=== PATIENT | female | born 1970 | race Caucasian/White ===

== ENCOUNTER 2018-03-14 16:39 | Inpatient (IN) ==
--- NOTE | 2018-03-14 18:29 | ED ---
HPI General Chief complaint: Overdose Stated complaint: psych eval /vol Time Seen by Provider: 03/14/18 17:23 History of Present Illness HPI narrative: Patient 48-year-old female history of bipolar disease presents emergency department at the insistence of her psychiatrist for evaluation of depression, the patient states she was evaluated and is been going through some things and has been thinking about hurting herself, she states about 11:00 sedation took 25 x 25 mg Benadryl tablets. Denies any other ingestion, denies any chest pain shortness of breath abdominal pain nausea vomiting diarrhea constipation. Symptoms moderate, for the past few weeks, gradually worsening, associated signs symptoms in context as above. Related Data Home Medications Medication Instructions Recorded Confirmed atorvastatin 20 mg PO HS 12/27/17 03/14/18 cholecalciferol (vitamin D3) 1,000 unit PO DAILY 12/27/17 03/14/18 [Vitamin D3] escitalopram oxalate 20 mg PO DAILY 12/27/17 03/14/18 famotidine 40 mg PO DAILY 12/27/17 03/14/18 ferrous sulfate 325 mg PO DAILY 12/27/17 03/14/18 gabapentin See Label Instructions .ROUTE 12/27/17 03/14/18 .COMPLEX meclizine 25 mg PO TID 12/27/17 03/14/18 omeprazole 40 mg PO DAILY 12/27/17 03/14/18 quetiapine 50 mg PO HS 12/27/17 03/14/18 ropinirole 0.25 mg PO HS 12/27/17 03/14/18 zolpidem 5 mg PO HS 12/27/17 03/14/18 Allergies Allergy/AdvReac Type Severity Reaction Status Date / Time No Known Allergies Allergy Verified 03/14/18 18:58 Review of Systems ROS: all other systems reviewed are negative [facility] Medical History Medical History Bipolar 1 disorder, depressed (Acute) Cholecystectomy planned (Acute) Depression (Acute) High cholesterol (Acute) History of hysterectomy (Acute) PTSD (post-traumatic stress disorder) (Acute) Social History Social History Substance History: No History of Abuse Second Hand Smoke Exposure: No Smoking Status: Never smoker How Often Do You Have a Drink Containing Alcohol: Never Recent Travel in [facility] within the Last 8 Weeks: No Recent Out of Country Travel within the Last 8 Weeks: No Immunization History Tetanus Immunization: <5 Years Hx Influenza Vaccine This Season: Yes Exam Narrative Exam Narrative: GENERAL: Well-developed well-nourished, overweight female in no obvious distress peer SKIN: Focused skin assessment warm/dry. HEAD: Atraumatic. Normocephalic. EYES: Pupils equal and round. No scleral icterus. No injection or drainage. ENT: No nasal bleeding or discharge. Mucous membranes pink and moist. NECK: Trachea midline. No JVD. CARDIOVASCULAR: Regular rate and rhythm. No murmur appreciated. RESPIRATORY: No accessory muscle use. Clear to auscultation. Breath sounds equal bilaterally. GASTROINTESTINAL: Abdomen soft, non-tender, nondistended. Hepatic and splenic margins not palpable. MUSCULOSKELETAL: No obvious deformities. No clubbing. No cyanosis. No edema. NEUROLOGICAL: Awake and alert. No obvious cranial nerve deficits. Motor grossly within normal limits. Normal speech. PSYCHIATRIC: Depressed mood and affect. Insight and judgment fair. Endorses suicidal ideation with planning and attempt today. Course Initial Documented Vital Signs Temperature 98.4 F 03/14/18 16:55 Pulse Rate 101 H 03/14/18 16:55 Respiratory Rate 24 03/14/18 16:55 Blood Pressure 132/73 03/14/18 16:55 Pulse Oximetry 95 03/14/18 16:55 Last Documented Vital Signs Temperature 97.8 F 03/16/18 18:00 Pulse Rate 81 03/16/18 18:00 Respiratory Rate 17 03/16/18 18:00 Blood Pressure 114/52 L 03/16/18 18:00 Pulse Oximetry 98 03/16/18 18:00 Medical Decision Making [facility] Narrative Medical decision making narrative: Patient room in the emergency department, several notes were handed to me from Gary Turner nurse from [facility]. States that her outpatient psychiatrist recommended that she be considered highly for admission I do not disagree. Patient wants to be admitted under voluntary status, I discussed my recommendation the patient should be admitted with Mr. Turner. He is going to call the psychiatrist on an attempt to find orders for admission. Patient medically cleared for psychiatric evaluation, was discussed with Mr. Turner upon medical clearance. Medical Screen Exam Complete: Yes Emergency Medical Condition: Yes Lab Data Result diagrams: 03/16/18 11:35 03/16/18 11:35 POC Results POC Urine Results Negative Lab Results 10/02/18 10/02/18 10/02/18 Range/Units 18:25 18:35 18:35 WBC 10.3 (4.0-11.0) th/mm3 RBC 4.32 (4.00-5.30) mil/mm3 Hgb 12.0 (11.6-15.3) gm/dL Hct 38.6 (35.0-46.0) % MCV 89.4 (80.0-100.0) fL MCH 27.8 (27.0-34.0) pg MCHC 31.2 L (32.0-36.0) % RDW 15.7 (11.6-17.2) % Plt Count 252 (150-450) th/mm3 MPV 7.8 (7.0-11.0) fL Neut % (Auto) 72.2 H (16.0-70.0) % Lymph % (Auto) 21.9 (9.0-44.0) % [place] % (Auto) 5.0 (0.0-8.0) % Eos % (Auto) 0.6 (0.0-4.0) % Baso % (Auto) 0.3 (0.0-2.0) % Neut # (Auto) 7.4 (1.8-7.7) th/mm3 Lymph # (Auto) 2.3 (1.0-4.8) th/mm3 [place] # (Auto) 0.5 (0.0-0.9) th/mm3 Eos # (Auto) 0.1 (0.0-0.4) th/mm3 Baso # (Auto) 0.0 (0.0-0.2) th/mm3 WBC Differential . Differential Comment Auto diff final Sodium 137 (136-145) meq/L Potassium 4.1 (3.5-5.1) meq/L Chloride 106 (98-107) meq/L Carbon Dioxide 20.5 L (21.0-32.0) meq/L Anion Gap 11 (5-15) meq/L BUN 13 (7-18) mg/dL Creatinine 0.65 (0.50-1.00) mg/dL Estimated GFR Greater than 89 (>89) mL/min POC Glucose (68-110) mg/dl Random Glucose 68 L (74-106) mg/dL Hemoglobin A1c (4.3-6.0) % Calcium 8.6 (8.5-10.1) mg/dL Iron (50-170) mcg/dL Total Bilirubin 0.2 (0.2-1.0) mg/dL AST 18 (15-37) U/L ALT 24 (10-53) U/L Alkaline Phosphatase 93 (45-117) U/L Total Protein 7.8 (6.4-8.2) g/dL Albumin 3.5 (3.4-5.0) g/dL Triglycerides (42-150) mg/dL Cholesterol (120-200) mg/dL LDL Cholesterol, Calc (0-99) mg/dL HDL Cholesterol (40.0-60.0) mg/dL Cholesterol/HDL Ratio Ratio TSH 2.160 (0.358-3.740) uIU/mL Urine Opiates Screen Neg (Neg) Acetaminophen Less than 2.0 L (10.0-30.0) mcg/mL Ur Barbiturates Screen Neg (Neg) Ur Amphetamines Screen Neg (Neg) U Benzodiazepines Scrn Neg (Neg) [place] (0.5-1.5) meq/L Urine Cocaine Screen Neg (Neg) U Cannabinoids Screen Neg (Neg) Serum Alcohol Less than 3 (0-5) mg/dL 03/14/18 03/14/18 03/14/18 Range/Units 21:12 21:12 22:40 WBC (4.0-11.0) th/mm3 RBC (4.00-5.30) mil/mm3 Hgb (11.6-15.3) gm/dL Hct (35.0-46.0) % MCV (80.0-100.0) fL MCH (27.0-34.0) pg MCHC (32.0-36.0) % RDW (11.6-17.2) % Plt Count (150-450) th/mm3 MPV (7.0-11.0) fL Neut % (Auto) (16.0-70.0) % Lymph % (Auto) (9.0-44.0) % [place] % (Auto) (0.0-8.0) % Eos % (Auto) (0.0-4.0) % Baso % (Auto) (0.0-2.0) % Neut # (Auto) (1.8-7.7) th/mm3 Lymph # (Auto) (1.0-4.8) th/mm3 [place] # (Auto) (0.0-0.9) th/mm3 Eos # (Auto) (0.0-0.4) th/mm3 Baso # (Auto) (0.0-0.2) th/mm3 WBC Differential Differential Comment Sodium (136-145) meq/L Potassium (3.5-5.1) meq/L Chloride (98-107) meq/L Carbon Dioxide (21.0-32.0) meq/L Anion Gap (5-15) meq/L BUN (7-18) mg/dL Creatinine (0.50-1.00) mg/dL Estimated GFR (>89) mL/min POC Glucose 95 (68-110) mg/dl Random Glucose (74-106) mg/dL Hemoglobin A1c (4.3-6.0) % Calcium (8.5-10.1) mg/dL Iron 51 (50-170) mcg/dL Total Bilirubin (0.2-1.0) mg/dL AST (15-37) U/L ALT (10-53) U/L Alkaline Phosphatase (45-117) U/L Total Protein (6.4-8.2) g/dL Albumin (3.4-5.0) g/dL Triglycerides (42-150) mg/dL Cholesterol (120-200) mg/dL LDL Cholesterol, Calc (0-99) mg/dL HDL Cholesterol (40.0-60.0) mg/dL Cholesterol/HDL Ratio Ratio TSH (0.358-3.740) uIU/mL Urine Opiates Screen (Neg) Acetaminophen (10.0-30.0) mcg/mL Ur Barbiturates Screen (Neg) Ur Amphetamines Screen (Neg) U Benzodiazepines Scrn (Neg) [place] 0.1 L (0.5-1.5) meq/L Urine Cocaine Screen (Neg) U Cannabinoids Screen (Neg) Serum Alcohol (0-5) mg/dL 03/15/18 03/15/18 03/16/18 Range/Units 02:42 02:42 11:35 WBC (4.0-11.0) th/mm3 RBC (4.00-5.30) mil/mm3 Hgb (11.6-15.3) gm/dL Hct (35.0-46.0) % MCV (80.0-100.0) fL MCH (27.0-34.0) pg MCHC (32.0-36.0) % RDW (11.6-17.2) % Plt Count (150-450) th/mm3 MPV (7.0-11.0) fL Neut % (Auto) (16.0-70.0) % Lymph % (Auto) (9.0-44.0) % [place] % (Auto) (0.0-8.0) % Eos % (Auto) (0.0-4.0) % Baso % (Auto) (0.0-2.0) % Neut # (Auto) (1.8-7.7) th/mm3 Lymph # (Auto) (1.0-4.8) th/mm3 [place] # (Auto) (0.0-0.9) th/mm3 Eos # (Auto) (0.0-0.4) th/mm3 Baso # (Auto) (0.0-0.2) th/mm3 WBC Differential Differential Comment Sodium 139 (136-145) meq/L Potassium 4.3 (3.5-5.1) meq/L Chloride 104 (98-107) meq/L Carbon Dioxide 22.7 (21.0-32.0) meq/L Anion Gap 12 (5-15) meq/L BUN 11 (7-18) mg/dL Creatinine 0.62 (0.50-1.00) mg/dL Estimated GFR Greater than 89 (>89) mL/min POC Glucose (68-110) mg/dl Random Glucose 97 (74-106) mg/dL Hemoglobin A1c (4.3-6.0) % Calcium 9.3 (8.5-10.1) mg/dL Iron 62 (50-170) mcg/dL Total Bilirubin (0.2-1.0) mg/dL AST (15-37) U/L ALT (10-53) U/L Alkaline Phosphatase (45-117) U/L Total Protein (6.4-8.2) g/dL Albumin (3.4-5.0) g/dL Triglycerides 218 H (42-150) mg/dL Cholesterol 167 (120-200) mg/dL LDL Cholesterol, Calc 78 (0-99) mg/dL HDL Cholesterol 45.7 (40.0-60.0) mg/dL Cholesterol/HDL Ratio 3.65 Ratio TSH (0.358-3.740) uIU/mL Urine Opiates Screen (Neg) Acetaminophen (10.0-30.0) mcg/mL Ur Barbiturates Screen (Neg) Ur Amphetamines Screen (Neg) U Benzodiazepines Scrn (Neg) [place] 0.1 L (0.5-1.5) meq/L Urine Cocaine Screen (Neg) U Cannabinoids Screen (Neg) Serum Alcohol (0-5) mg/dL 03/16/18 03/16/18 Range/Units 11:35 11:35 WBC 11.3 H (4.0-11.0) th/mm3 RBC 4.57 (4.00-5.30) mil/mm3 Hgb 13.0 (11.6-15.3) gm/dL Hct 39.7 (35.0-46.0) % MCV 86.8 (80.0-100.0) fL MCH 28.4 (27.0-34.0) pg MCHC 32.7 (32.0-36.0) % RDW 15.5 (11.6-17.2) % Plt Count 313 (150-450) th/mm3 MPV 7.6 (7.0-11.0) fL Neut % (Auto) 73.2 H (16.0-70.0) % Lymph % (Auto) 19.7 (9.0-44.0) % [place] % (Auto) 5.9 (0.0-8.0) % Eos % (Auto) 0.8 (0.0-4.0) % Baso % (Auto) 0.4 (0.0-2.0) % Neut # (Auto) 8.3 H (1.8-7.7) th/mm3 Lymph # (Auto) 2.2 (1.0-4.8) th/mm3 [place] # (Auto) 0.7 (0.0-0.9) th/mm3 Eos # (Auto) 0.1 (0.0-0.4) th/mm3 Baso # (Auto) 0.1 (0.0-0.2) th/mm3 WBC Differential . Differential Comment Auto diff final Sodium (136-145) meq/L Potassium (3.5-5.1) meq/L Chloride (98-107) meq/L Carbon Dioxide (21.0-32.0) meq/L Anion Gap (5-15) meq/L BUN (7-18) mg/dL Creatinine (0.50-1.00) mg/dL Estimated GFR (>89) mL/min POC Glucose (68-110) mg/dl Random Glucose (74-106) mg/dL Hemoglobin A1c 6.1 H (4.3-6.0) % Calcium (8.5-10.1) mg/dL Iron (50-170) mcg/dL Total Bilirubin (0.2-1.0) mg/dL AST (15-37) U/L ALT (10-53) U/L Alkaline Phosphatase (45-117) U/L Total Protein (6.4-8.2) g/dL Albumin (3.4-5.0) g/dL Triglycerides (42-150) mg/dL Cholesterol (120-200) mg/dL LDL Cholesterol, Calc (0-99) mg/dL HDL Cholesterol (40.0-60.0) mg/dL Cholesterol/HDL Ratio Ratio TSH (0.358-3.740) uIU/mL Urine Opiates Screen (Neg) Acetaminophen (10.0-30.0) mcg/mL Ur Barbiturates Screen (Neg) Ur Amphetamines Screen (Neg) U Benzodiazepines Scrn (Neg) [place] (0.5-1.5) meq/L Urine Cocaine Screen (Neg) U Cannabinoids Screen (Neg) Serum Alcohol (0-5) mg/dL Discharge Plan Discharge Disposition Patient Disposition: 01 Discharge Home Discharge Condition Condition: Fair Discharge Order Discharge Orders: Discharge Order (Routine); Ordered 03/16/18 Ordered By: Mikey Harmon Discharge Details Anticipated Discharge Date: 03/16/18 Physicians Team ED Provider: Cabrera Chao Primary Care Provider: UNKNOWN, Attending Provider: Mikey Harmon Status ED Status: Left Department Discharge Information Discharge Date/Time: 03/15/18 08:35
[2018-03-14 18:48] LABS: Amphetamine Screen,Urine Neg (Neg); Barbiturate Screen,Urine Neg (Neg); Cannabinoid Screen,Urine Neg (Neg); Cocaine Screen,Urine Neg (Neg)
[2018-03-14 18:51] LABS: Opiate Screen,Urine Neg (Neg)
[2018-03-14 19:00] LABS: Baso % (Auto) 0.3 % (0.0-2.0); Eos # (Auto) 0.1 th/mm3 (0.0-0.4); Eos % (Auto) 0.6 % (0.0-4.0); Hematocrit 38.6 % (35.0-46.0); Lymph # (Auto) 2.3 th/mm3 (1.0-4.8); Lymph % (Auto) 21.9 % (9.0-44.0); Mean Corpuscular HGB Conc 31.2 % (32.0-36.0); Mean Corpuscular Hemoglobin 27.8 pg (27.0-34.0); Mean Corpuscular Volume 89.4 fL (80.0-100.0); Mean Platelet Volume 7.8 fL (7.0-11.0); Mono # (Auto) 0.5 th/mm3 (0.0-0.9); Neut # (Auto) 7.4 th/mm3 (1.8-7.7); Neut % (Auto) 72.2 % (16.0-70.0); Platelet Count 252 th/mm3 (150-450); Red Blood Count 4.32 mil/mm3 (4.00-5.30); Red Cell Distribution Width 15.7 % (11.6-17.2); White Blood Count 10.3 th/mm3 (4.0-11.0)
[2018-03-14 19:08] LABS: Albumin 3.5 g/dL (3.4-5.0); Anion Gap 11 meq/L (5-15); Aspartate Aminotransferase 18 U/L (15-37); Blood Urea Nitrogen 13 mg/dL (7-18); Calcium 8.6 mg/dL (8.5-10.1); Carbon Dioxide 20.5 meq/L (21.0-32.0); Chloride 106 meq/L (98-107); Glomerular Filtration Rate Greater Than 89 mL/min (>89); Glucose,Random 68 mg/dL (74-106); Potassium 4.1 meq/L (3.5-5.1); Sodium 137 meq/L (136-145)
[2018-03-14 19:24] LABS: Alanine Aminotransferase 24 U/L (10-53); Alkaline Phosphatase 93 U/L (45-117); Total Protein 7.8 g/dL (6.4-8.2)
--- NOTE | 2018-03-14 21:47 | ECG ---
Date Performed: 03/14/2018 Time Performed: 19:30:47 PTAGE: 48 years EKG: Sinus rhythm LOW QRS VOLTAGE IN PRECORDIAL LEADS BORDERLINE ECG PREVIOUS TRACING : 09/08/2009 14.49 Since the previous tracing, no significant change noted DOCTOR: Yumi Muir Interpretating Date/Time 03/14/2018 21:46:55
[2018-03-15] MEDS: Gabapentin 300 MG Capsule PO SCH ×2 (09:54→20:48)
[2018-03-15] MEDS: Famotidine 20 MG Tablet PO SCH (09:54)
[2018-03-15] MEDS: Ferrous Sulfate 325 MG Tablet PO SCH (09:54)
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
[2018-03-15] MEDS ORDERED: Acetaminophen 325 MG Tablet PO PRN (14:01)
[2018-03-15] MEDS ORDERED: Aluminum/Magnesium/Simethacone Susp 30 ML UDC PO PRN (14:01)
[2018-03-15] MEDS ORDERED: LORazepam 1 MG Tablet PO PRN (14:01)
[2018-03-15] MEDS ORDERED: QUEtiapine 25 MG Tablet PO SCH (21:00)
[2018-03-15] MEDS ORDERED: traZODone 50 MG Tablet PO PRN (21:00)
[2018-03-15] MEDS ORDERED: Zolpidem Tartrate 5 MG Tablet PO ONE (21:00)
--- NOTE | 2018-03-15 21:08 | ECG ---
Date Performed: 03/15/2018 Time Performed: 00:27:12 PTAGE: 48 years EKG: Sinus rhythm LOW QRS VOLTAGE IN PRECORDIAL LEADS BORDERLINE ECG PREVIOUS TRACING : 03/14/2018 21.43 Since the previous tracing, no significant change noted DOCTOR: Yumi Muir Interpretating Date/Time 03/15/2018 21:06:14
--- NOTE | 2018-03-15 21:12 | ECG ---
Date Performed: 03/14/2018 Time Performed: 21:43:44 PTAGE: 48 years EKG: Sinus rhythm LOW QRS VOLTAGE IN PRECORDIAL LEADS BORDERLINE ECG PREVIOUS TRACING : 03/14/2018 19.30 Since the previous tracing, no significant change noted DOCTOR: Yumi Muir Interpretating Date/Time 03/15/2018 21:11:09
[2018-03-16 05:35] VITALS: TEMP 97.8
[2018-03-16] MEDS: Ferrous Sulfate 325 MG Tablet PO SCH (08:17)
[2018-03-16] MEDS: Gabapentin 300 MG Capsule PO SCH (08:17)
[2018-03-16] MEDS: Famotidine 20 MG Tablet PO SCH (08:17)
[2018-03-16 11:56] LABS: Baso # (Auto) 0.1 th/mm3 (0.0-0.2); Baso % (Auto) 0.4 % (0.0-2.0); Eos # (Auto) 0.1 th/mm3 (0.0-0.4); Eos % (Auto) 0.8 % (0.0-4.0); Hematocrit 39.7 % (35.0-46.0); Lymph # (Auto) 2.2 th/mm3 (1.0-4.8); Lymph % (Auto) 19.7 % (9.0-44.0); Mean Corpuscular HGB Conc 32.7 % (32.0-36.0); Mean Corpuscular Hemoglobin 28.4 pg (27.0-34.0); Mean Corpuscular Volume 86.8 fL (80.0-100.0); Mean Platelet Volume 7.6 fL (7.0-11.0); Mono # (Auto) 0.7 th/mm3 (0.0-0.9); Mono % (Auto) 5.9 % (0.0-8.0); Neut # (Auto) 8.3 th/mm3 (1.8-7.7); Neut % (Auto) 73.2 % (16.0-70.0); Platelet Count 313 th/mm3 (150-450); Red Blood Count 4.57 mil/mm3 (4.00-5.30); Red Cell Distribution Width 15.5 % (11.6-17.2); White Blood Count 11.3 th/mm3 (4.0-11.0)
[2018-03-16 12:20] LABS: Anion Gap 12 meq/L (5-15); Blood Urea Nitrogen 11 mg/dL (7-18); Calcium 9.3 mg/dL (8.5-10.1); Carbon Dioxide 22.7 meq/L (21.0-32.0); Chloride 104 meq/L (98-107); Cholesterol 167 mg/dL (120-200); Glomerular Filtration Rate Greater Than 89 mL/min (>89); Glucose,Random 97 mg/dL (74-106); Potassium 4.3 meq/L (3.5-5.1); Sodium 139 meq/L (136-145); Triglycerides 218 mg/dL (42-150)
[2018-03-16 12:22] LABS: Chol/HDL Ratio 3.65 Ratio; HDL Cholesterol 45.7 mg/dL (40.0-60.0); LDL Cholesterol,Calculated 78 mg/dL (0-99)
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
[2018-03-16 18:02] VITALS: BP 114/52; PULSE 81; RESP 17; O2SAT 98
[2018-03-16 18:47] LABS: Hemoglobin A1c 6.1 % (4.3-6.0)
== END 2018-03-16 17:15 | disposition home or self-care (01) ==
LOC: NEPE 16:39 → NEPJ 03-15 04:18 → NEDA 03-15 07:58 → H260 03-15 08:59
PROVIDERS: ADMIT Psychiatry & Neurology Psychiatry; ATTEND Psychiatry & Neurology Psychiatry